=== PATIENT | male | born 1955 | race Caucasian/White ===

== ENCOUNTER 2017-09-05 17:27 | Inpatient (IN) | payer MEDICARE ==
[~2017-09-05] VITALS: Ht 170.2 cm; Wt 87.3 kg
[2017-09-05] VITALS (9 sets, daily range): BP systolic 82–134; BP diastolic 61–83; BMI 29.4
[2017-09-05 19:47] LABS: BASOPHILS 0.2 % (0-2); EOSINOPHILS 0.6 % (0-7); HEMATOCRIT 33.6 % (42.0-54.0); HEMOGLOBIN 11.1 g/dL (13.5-17.5); IMMATURE GRANULOCYTES 0.2 % (0-5); LYMPHOCYTES 16.8 % (15-50); MCH 29.3 pg (26.0-34.0); MCV 88.7 fL (80.0-100.0); MEAN PLATELET VOLUME 9.9 fL (7.4-10.4); MONOCYTES 8.9 % (2-11); NEUTROPHILS 73.3 % (40-80); PLATELET COUNT 245 10x3/uL (130-400); RBC 3.79 10x6/uL (4.20-6.10); RDW 17.8 % (11.5-14.5); WBC 12.5 10x3/uL (4.8-10.8)
[2017-09-05 19:48] LABS: ALBUMIN 1.9 g/dL (3.4-5.0); ANION GAP 12.5 mmol/L (8-16); BILIRUBIN - TOTAL 0.17 mg/dL (0.2-1.3); CALCIUM 8.7 mg/dL (8.5-10.1); CARBON DIOXIDE 25.3 mmol/L (21.0-32.0); CREATININE - SERUM 1.2 mg/dL (0.6-1.3); POTASSIUM - SERUM 3.8 mmol/L (3.5-5.1); PROTEIN - SERUM 6.1 g/dL (6.4-8.2)
[2017-09-05 20:08] LABS: CKMB 1.4 U/L (0.0-3.6); CREATINE KINASE 71 UL (21-232); TROPONIN-I 0.057 ng/mL (0.000-0.060)
[2017-09-05 20:20] LABS: % SATURATION 16 % (15-55); IRON 33 ug/dl (35-150); TOTAL IRON BIND CAPACITY 196 ug/dl (260-445); UNSAT IRON BIND CAPACITY 163 ug/dl (150-375)
[2017-09-06] VITALS (24 sets, daily range): BP systolic 93–150; BP diastolic 66–92; BMI 29.6
[2017-09-06 02:31] LABS: BASOPHILS 0.2 % (0-2); EOSINOPHILS 1.2 % (0-7); IMMATURE GRANULOCYTES 0.2 % (0-5); LYMPHOCYTES 16.8 % (15-50); MCH 30.1 pg (26.0-34.0); MCHC 34.4 g/dL (31.0-37.0); MCV 87.7 fL (80.0-100.0); MEAN PLATELET VOLUME 9.7 fL (7.4-10.4); MONOCYTES 8.8 % (2-11); NEUTROPHILS 72.8 % (40-80); PLATELET COUNT 263 10x3/uL (130-400); RBC 3.65 10x6/uL (4.20-6.10); RDW 17.8 % (11.5-14.5); WBC 13.2 10x3/uL (4.8-10.8)
[2017-09-06 02:53] LABS: CALC OSMOLALITY 283 mosm/kg (275-300); CALCIUM 8.5 mg/dL (8.5-10.1); CARBON DIOXIDE 27.4 mmol/L (21.0-32.0); CHLORIDE - SERUM 106 mmol/L (98-107); CKMB 1.4 U/L (0.0-3.6); CREATINE KINASE 59 UL (21-232); CREATININE - SERUM 1.4 mg/dL (0.6-1.3); GLUCOSE 74 mg/dL (74-106); POTASSIUM - SERUM 3.9 mmol/L (3.5-5.1); SODIUM 141 mmol/L (136-145); TROPONIN-I 0.043 ng/mL (0.000-0.060); UREA NITROGEN 25 mg/dL (7-18); eGFR NON AFRICAN AMERICAN 55 mL/min (90-120)
[2017-09-06 05:28] LABS: CREATININE - URINE 75.8 mg/dL (30-125)
[2017-09-06 05:30] LABS: PROTEIN - URINE 329.9 mg/dL (0.0-11.9)
[2017-09-06 08:07] LABS: CKMB 1.2 U/L (0.0-3.6); CREATINE KINASE 76 UL (21-232); TROPONIN-I 0.048 ng/mL (0.000-0.060)
[2017-09-06] MEDS ORDERED: NORVASC5 MG PO (13:45)
[2017-09-06] MEDS ORDERED: BACLOFEN20 M1 PO (13:46)
[2017-09-06] MEDS ORDERED: COREG12.5 MG PO (13:46)
[2017-09-06] MEDS ORDERED: DEXILANT60 MG PO (13:47)
[2017-09-06] MEDS ORDERED: CATAPRES0.1 MG PO (13:47)
[2017-09-06] MEDS ORDERED: FUROSEMIDE40 MG PO ×2 (13:48→13:49)
[2017-09-06] MEDS ORDERED: FOLIC ACID1 MG PO (13:48)
[2017-09-06] MEDS ORDERED: HUMULIN R100 U/ML SC (13:52)
[2017-09-06] MEDS ORDERED: HYDROCODONE-APA1 TAB PO (13:53)
[2017-09-06] MEDS ORDERED: K-DUR20 MEQ PO (13:54)
[2017-09-06] MEDS ORDERED: JENTADUETO 2.51 EACH PO (13:54)
[2017-09-06] MEDS ORDERED: IPRAT-ALBUT 0.5-3 ML UPD (13:54)
[2017-09-06] MEDS ORDERED: LEVEMIR100 U/M1 SC (13:55)
[2017-09-06] MEDS ORDERED: METOPROLOL TART50 MG PO (13:56)
[2017-09-06] MEDS ORDERED: RELAFEN750 MG PO (13:56)
[2017-09-06] MEDS ORDERED: GLUCOPHAGE500 MG PO (13:56)
[2017-09-06] MEDS ORDERED: NEURONTIN 300300 MG PO (13:57)
[2017-09-06] MEDS ORDERED: PROTONIX40 MG PO (13:58)
[2017-09-06] MEDS ORDERED: PRAVACHOL40 MG PO (13:58)
[2017-09-06] MEDS ORDERED: CARAFATE1 G/10 ML PO (13:59)
[2017-09-07] VITALS (23 sets, daily range): BP systolic 110–173; BP diastolic 74–100
[2017-09-07 04:39] LABS: BASOPHILS 0.3 % (0-2); EOSINOPHILS 2.6 % (0-7); HEMATOCRIT 32.4 % (42.0-54.0); HEMOGLOBIN 10.8 g/dL (13.5-17.5); IMMATURE GRANULOCYTES 0.2 % (0-5); LYMPHOCYTES 15.7 % (15-50); MCH 29.1 pg (26.0-34.0); MCHC 33.3 g/dL (31.0-37.0); MCV 87.3 fL (80.0-100.0); MEAN PLATELET VOLUME 11.1 fL (7.4-10.4); MONOCYTES 7.5 % (2-11); NEUTROPHILS 73.7 % (40-80); RBC 3.71 10x6/uL (4.20-6.10); RDW 18.7 % (11.5-14.5); WBC 12.5 10x3/uL (4.8-10.8)
[2017-09-07 04:40] LABS: PLATELET COUNT 199 10x3/uL (130-400)
[2017-09-07 04:50] LABS: ANION GAP 16.8 mmol/L (8-16); CALCIUM 7.9 mg/dL (8.5-10.1); CARBON DIOXIDE 22.5 mmol/L (21.0-32.0); CREATININE - SERUM 1.2 mg/dL (0.6-1.3); MAGNESIUM - SERUM 1.7 mg/dL (1.8-2.4); PHOSPHOROUS 4.7 mg/dL (2.5-4.9); POTASSIUM - SERUM 4.3 mmol/L (3.5-5.1)
[2017-09-07 08:19] LABS: FOLATE (FOLIC ACID) - SERUM >20.0 ng/mL (>3.0)
[2017-09-07 18:11] LABS: ACID FAST SMEAR Negative (()); AFB SPECIMEN PROCESSING Concentration (())
[2017-09-08] VITALS (24 sets, daily range): BP systolic 136–166; BP diastolic 78–92
[2017-09-08 04:33] LABS: BASOPHILS 0.3 % (0-2); EOSINOPHILS 4.3 % (0-7); HEMATOCRIT 31.4 % (42.0-54.0); HEMOGLOBIN 10.5 g/dL (13.5-17.5); IMMATURE GRANULOCYTES 0.3 % (0-5); LYMPHOCYTES 14.4 % (15-50); MCH 29.2 pg (26.0-34.0); MCHC 33.4 g/dL (31.0-37.0); MCV 87.5 fL (80.0-100.0); MEAN PLATELET VOLUME 9.6 fL (7.4-10.4); MONOCYTES 8.5 % (2-11); NEUTROPHILS 72.2 % (40-80); PLATELET COUNT 236 10x3/uL (130-400); RBC 3.59 10x6/uL (4.20-6.10); RDW 18.3 % (11.5-14.5); WBC 14.4 10x3/uL (4.8-10.8)
[2017-09-08 04:50] LABS: ALBUMIN 1.6 g/dL (3.4-5.0); ANION GAP 14.4 mmol/L (8-16); BILIRUBIN - TOTAL 0.18 mg/dL (0.2-1.3); CARBON DIOXIDE 21.2 mmol/L (21.0-32.0); CREATININE - SERUM 1.1 mg/dL (0.6-1.3); PROTEIN - SERUM 5.8 g/dL (6.4-8.2)
[2017-09-08 05:03] LABS: POTASSIUM - SERUM 3.6 mmol/L (3.5-5.1)
[2017-09-08 12:17] LABS: FUNGUS STAIN Final report (())
[2017-09-09] VITALS (24 sets, daily range): BP systolic 107–174; BP diastolic 60–96; Ht 170.2 cm; Wt 87.3 kg
[2017-09-09 04:09] LABS: BASOPHILS 0.3 % (0-2); EOSINOPHILS 4.6 % (0-7); HEMATOCRIT 29.7 % (42.0-54.0); HEMOGLOBIN 9.9 g/dL (13.5-17.5); IMMATURE GRANULOCYTES 0.4 % (0-5); LYMPHOCYTES 16.2 % (15-50); MCH 29.2 pg (26.0-34.0); MCHC 33.3 g/dL (31.0-37.0); MCV 87.6 fL (80.0-100.0); MEAN PLATELET VOLUME 9.7 fL (7.4-10.4); MONOCYTES 7.7 % (2-11); NEUTROPHILS 70.8 % (40-80); PLATELET COUNT 239 10x3/uL (130-400); RBC 3.39 10x6/uL (4.20-6.10); RDW 18.7 % (11.5-14.5); WBC 13.4 10x3/uL (4.8-10.8)
[2017-09-09 04:20] LABS: CALC OSMOLALITY 284 mosm/kg (275-300); CALCIUM 8.2 mg/dL (8.5-10.1); CHLORIDE - SERUM 109 mmol/L (98-107); GLUCOSE 179 mg/dL (74-106); POTASSIUM - SERUM 3.4 mmol/L (3.5-5.1); SODIUM 141 mmol/L (136-145); UREA NITROGEN 13 mg/dL (7-18); eGFR NON AFRICAN AMERICAN 81 mL/min (90-120)
[2017-09-10] VITALS (24 sets, daily range): BP systolic 115–182; BP diastolic 62–97
[2017-09-10 03:58] LABS: BASOPHILS 0.6 % (0-2); EOSINOPHILS 5.4 % (0-7); HEMATOCRIT 30.4 % (42.0-54.0); IMMATURE GRANULOCYTES 0.6 % (0-5); LYMPHOCYTES 15.3 % (15-50); MCHC 32.9 g/dL (31.0-37.0); MCV 88.1 fL (80.0-100.0); MEAN PLATELET VOLUME 9.7 fL (7.4-10.4); NEUTROPHILS 70.1 % (40-80); PLATELET COUNT 225 10x3/uL (130-400); RBC 3.45 10x6/uL (4.20-6.10); RDW 18.2 % (11.5-14.5); WBC 13.3 10x3/uL (4.8-10.8)
[2017-09-10 04:12] LABS: CALC OSMOLALITY 280 mosm/kg (275-300); CALCIUM 7.9 mg/dL (8.5-10.1); CARBON DIOXIDE 20.8 mmol/L (21.0-32.0); CHLORIDE - SERUM 107 mmol/L (98-107); CREATININE - SERUM 0.9 mg/dL (0.6-1.3); GLUCOSE 186 mg/dL (74-106); POTASSIUM - SERUM 3.6 mmol/L (3.5-5.1); SODIUM 138 mmol/L (136-145); UREA NITROGEN 12 mg/dL (7-18); VANCOMYCIN - RANDOM 17.2 ug/mL (10.0-20.0); eGFR NON AFRICAN AMERICAN > 90 mL/min (90-120)
[2017-09-11] VITALS (24 sets, daily range): BP systolic 149–174; BP diastolic 75–96
[2017-09-11 06:51] LABS: BASOPHILS 0.7 % (0-2); EOSINOPHILS 7.1 % (0-7); HEMATOCRIT 31.9 % (42.0-54.0); HEMOGLOBIN 10.6 g/dL (13.5-17.5); LYMPHOCYTES 16.9 % (15-50); MCH 29.1 pg (26.0-34.0); MCHC 33.2 g/dL (31.0-37.0); MCV 87.6 fL (80.0-100.0); MEAN PLATELET VOLUME 9.5 fL (7.4-10.4); MONOCYTES 10.3 % (2-11); PLATELET COUNT 213 10x3/uL (130-400); RBC 3.64 10x6/uL (4.20-6.10); RDW 18.4 % (11.5-14.5); WBC 12.9 10x3/uL (4.8-10.8)
[2017-09-11 07:16] LABS: ALKALINE PHOSPHATASE 77 U/L (46-116); ALT (SGPT) 10 U/L (10-68); BILIRUBIN - TOTAL 0.21 mg/dL (0.2-1.3); CALC OSMOLALITY 283 mosm/kg (275-300); CALCIUM 8.2 mg/dL (8.5-10.1); CARBON DIOXIDE 19.9 mmol/L (21.0-32.0); CHLORIDE - SERUM 107 mmol/L (98-107); CREATININE - SERUM 0.9 mg/dL (0.6-1.3); GLUCOSE 184 mg/dL (74-106); MAGNESIUM - SERUM 1.8 mg/dL (1.8-2.4); PHOSPHOROUS 3.8 mg/dL (2.5-4.9); POTASSIUM - SERUM 3.2 mmol/L (3.5-5.1); PROTEIN - SERUM 6.2 g/dL (6.4-8.2); SODIUM 140 mmol/L (136-145); UREA NITROGEN 12 mg/dL (7-18); eGFR NON AFRICAN AMERICAN > 90 mL/min (90-120)
[2017-09-12] VITALS (18 sets, daily range): BP systolic 137–182; BP diastolic 80–98
[2017-09-12 04:58] LABS: BASOPHILS 0.5 % (0-2); EOSINOPHILS 5.5 % (0-7); HEMATOCRIT 31.1 % (42.0-54.0); HEMOGLOBIN 10.2 g/dL (13.5-17.5); IMMATURE GRANULOCYTES 1.1 % (0-5); LYMPHOCYTES 15.1 % (15-50); MCH 28.8 pg (26.0-34.0); MCHC 32.8 g/dL (31.0-37.0); MCV 87.9 fL (80.0-100.0); MEAN PLATELET VOLUME 10.2 fL (7.4-10.4); MONOCYTES 9.6 % (2-11); NEUTROPHILS 68.2 % (40-80); PLATELET COUNT 242 10x3/uL (130-400); RBC 3.54 10x6/uL (4.20-6.10); WBC 15.1 10x3/uL (4.8-10.8)
[2017-09-12 05:24] LABS: ALBUMIN 2.1 g/dL (3.4-5.0); ALKALINE PHOSPHATASE 75 U/L (46-116); ALT (SGPT) 11 U/L (10-68); BILIRUBIN - TOTAL 0.27 mg/dL (0.2-1.3); CALC OSMOLALITY 286 mosm/kg (275-300); CALCIUM 8.3 mg/dL (8.5-10.1); CHLORIDE - SERUM 109 mmol/L (98-107); CREATININE - SERUM 0.8 mg/dL (0.6-1.3); GLUCOSE 155 mg/dL (74-106); PROTEIN - SERUM 6.2 g/dL (6.4-8.2); SODIUM 142 mmol/L (136-145); UREA NITROGEN 15 mg/dL (7-18); eGFR NON AFRICAN AMERICAN > 90 mL/min (90-120)
[2017-09-12 05:37] LABS: POTASSIUM - SERUM 3.2 mmol/L (3.5-5.1)
[2017-09-13 03:00] VITALS: BP 178/98
[2017-09-13 04:38] LABS: BASOPHILS 0.6 % (0-2); EOSINOPHILS 4.4 % (0-7); HEMATOCRIT 32.1 % (42.0-54.0); HEMOGLOBIN 10.7 g/dL (13.5-17.5); IMMATURE GRANULOCYTES 0.8 % (0-5); LYMPHOCYTES 15.1 % (15-50); MCH 29.3 pg (26.0-34.0); MCHC 33.3 g/dL (31.0-37.0); MCV 87.9 fL (80.0-100.0); MEAN PLATELET VOLUME 10.3 fL (7.4-10.4); NEUTROPHILS 71.1 % (40-80); PLATELET COUNT 260 10x3/uL (130-400); RBC 3.65 10x6/uL (4.20-6.10); RDW 17.9 % (11.5-14.5); WBC 16.5 10x3/uL (4.8-10.8)
[2017-09-13 04:52] LABS: ALBUMIN 2.3 g/dL (3.4-5.0); ALKALINE PHOSPHATASE 77 U/L (46-116); BILIRUBIN - TOTAL 0.45 mg/dL (0.2-1.3); CALC OSMOLALITY 287 mosm/kg (275-300); CALCIUM 8.8 mg/dL (8.5-10.1); CARBON DIOXIDE 18.5 mmol/L (21.0-32.0); CHLORIDE - SERUM 108 mmol/L (98-107); CREATININE - SERUM 0.9 mg/dL (0.6-1.3); GLUCOSE 164 mg/dL (74-106); PROTEIN - SERUM 6.6 g/dL (6.4-8.2); SODIUM 142 mmol/L (136-145); UREA NITROGEN 15 mg/dL (7-18); eGFR NON AFRICAN AMERICAN > 90 mL/min (90-120)
[2017-09-13 04:55] LABS: ALT (SGPT) 8 U/L (10-68); POTASSIUM - SERUM 3.2 mmol/L (3.5-5.1)
[2017-09-13 07:00] VITALS: BP 152/93
[2017-09-13 07:31] LABS: FUNGUS CULTURE RESULT 1 Candida albicans (())
[2017-09-13 11:00] VITALS: BP 156/94
[2017-09-13 16:33] VITALS: BP 162/79
[2017-09-13 20:00] VITALS: BP 162/83
[2017-09-14] VITALS: BP 150/90
[2017-09-14 04:00] VITALS: BP 162/88
[2017-09-14 06:55] LABS: BASOPHILS 0.8 % (0-2); EOSINOPHILS 3.8 % (0-7); HEMATOCRIT 32.4 % (42.0-54.0); HEMOGLOBIN 10.8 g/dL (13.5-17.5); IMMATURE GRANULOCYTES 0.6 % (0-5); LYMPHOCYTES 14.4 % (15-50); MCH 29.1 pg (26.0-34.0); MCHC 33.3 g/dL (31.0-37.0); MCV 87.3 fL (80.0-100.0); MEAN PLATELET VOLUME 9.6 fL (7.4-10.4); MONOCYTES 7.4 % (2-11); PLATELET COUNT 266 10x3/uL (130-400); RBC 3.71 10x6/uL (4.20-6.10); RDW 17.6 % (11.5-14.5); WBC 17.1 10x3/uL (4.8-10.8)
[2017-09-14 07:10] LABS: ALBUMIN 2.3 g/dL (3.4-5.0); ALKALINE PHOSPHATASE 77 U/L (46-116); BILIRUBIN - TOTAL 0.37 mg/dL (0.2-1.3); CALC OSMOLALITY 291 mosm/kg (275-300); CALCIUM 9.1 mg/dL (8.5-10.1); CARBON DIOXIDE 18.1 mmol/L (21.0-32.0); CHLORIDE - SERUM 111 mmol/L (98-107); GLUCOSE 168 mg/dL (74-106); PROTEIN - SERUM 6.5 g/dL (6.4-8.2); SODIUM 144 mmol/L (136-145); UREA NITROGEN 16 mg/dL (7-18); eGFR NON AFRICAN AMERICAN 81 mL/min (90-120)
[2017-09-14 07:12] LABS: ALT (SGPT) 14 U/L (10-68)
[2017-09-14 07:51] VITALS: BP 144/92
[2017-09-14 12:24] VITALS: BP 182/92
[2017-09-14 15:57] VITALS: BP 189/89
[2017-09-14 17:24] LABS: APPEARANCE HAZY (CLEAR); BILIRUBIN NEGATIVE (NEGATIVE); COLOR YELLOW (YELLOW); GLUCOSE 250 mg/dL (NEGATIVE); KETONE SMALL mg/dL (NEGATIVE); NITRITE NEGATIVE (NEGATIVE); PROTEIN 3+ mg/dL (NEGATIVE); SPECIFIC GRAVITY 1.015 (1.005-1.020); UROBILINOGEN NORMAL (NORMAL)
[2017-09-14 17:25] LABS: BACTERIA MANY /hpf (NONE SEEN); EPITHELIAL CELLS 0-5 /hpf (0-5); RED CELLS - URINE 0-5 /hpf (0-5); WHITE CELLS - URINE 0-5 /hpf (0-5)
[2017-09-14 17:26] LABS: AMORPHOUS SEDIMENT <1+ /lpf (NONE SEEN)
[2017-09-14 19:36] VITALS: BP 160/88
[2017-09-15] VITALS: BP 168/93
[2017-09-15 04:00] VITALS: BP 176/99
[2017-09-15 06:20] LABS: BASOPHILS 0.7 % (0-2); EOSINOPHILS 1.9 % (0-7); HEMATOCRIT 32.5 % (42.0-54.0); HEMOGLOBIN 10.9 g/dL (13.5-17.5); IMMATURE GRANULOCYTES 0.4 % (0-5); LYMPHOCYTES 13.7 % (15-50); MCH 29.4 pg (26.0-34.0); MCHC 33.5 g/dL (31.0-37.0); MCV 87.6 fL (80.0-100.0); MEAN PLATELET VOLUME 10.3 fL (7.4-10.4); MONOCYTES 7.3 % (2-11); PLATELET COUNT 292 10x3/uL (130-400); RBC 3.71 10x6/uL (4.20-6.10); RDW 17.6 % (11.5-14.5); WBC 18.1 10x3/uL (4.8-10.8)
[2017-09-15 06:50] LABS: ALBUMIN 2.2 g/dL (3.4-5.0); ALKALINE PHOSPHATASE 76 U/L (46-116); ALT (SGPT) 13 U/L (10-68); CALC OSMOLALITY 295 mosm/kg (275-300); CALCIUM 8.3 mg/dL (8.5-10.1); CHLORIDE - SERUM 113 mmol/L (98-107); GLUCOSE 157 mg/dL (74-106); SODIUM 146 mmol/L (136-145); UREA NITROGEN 19 mg/dL (7-18); eGFR NON AFRICAN AMERICAN 81 mL/min (90-120)
[2017-09-15 11:26] VITALS: BP 158/83
[2017-09-15 16:17] VITALS: BP 168/85
[2017-09-15 19:57] VITALS: BP 162/86
[2017-09-16] VITALS: BP 156/82
[2017-09-16 04:00] VITALS: BP 174/99
[2017-09-16 06:01] LABS: BASOPHILS 0.8 % (0-2); EOSINOPHILS 2.3 % (0-7); HEMATOCRIT 30.7 % (42.0-54.0); HEMOGLOBIN 10.4 g/dL (13.5-17.5); IMMATURE GRANULOCYTES 0.5 % (0-5); LYMPHOCYTES 13.4 % (15-50); MCH 29.5 pg (26.0-34.0); MCHC 33.9 g/dL (31.0-37.0); MEAN PLATELET VOLUME 9.5 fL (7.4-10.4); MONOCYTES 6.3 % (2-11); NEUTROPHILS 76.7 % (40-80); PLATELET COUNT 281 10x3/uL (130-400); RBC 3.53 10x6/uL (4.20-6.10); RDW 17.5 % (11.5-14.5); WBC 19.5 10x3/uL (4.8-10.8)
[2017-09-16 06:33] LABS: ALBUMIN 2.1 g/dL (3.4-5.0); ANION GAP 15.6 mmol/L (8-16); BILIRUBIN - TOTAL 0.4 mg/dL (0.2-1.3); CALCIUM 8.5 mg/dL (8.5-10.1); CARBON DIOXIDE 19.8 mmol/L (21.0-32.0); CREATININE - SERUM 1.1 mg/dL (0.6-1.3); PROTEIN - SERUM 5.9 g/dL (6.4-8.2); VANCOMYCIN - TROUGH 14.2 ug/mL (10.0-20.0)
[2017-09-16 06:37] LABS: POTASSIUM - SERUM 2.4 mmol/L (3.5-5.1)
[2017-09-16 08:54] VITALS: BP 179/93
[2017-09-16 11:10] LABS: MAGNESIUM - SERUM 1.5 mg/dL (1.8-2.4); PHOSPHOROUS 3.6 mg/dL (2.5-4.9)
[2017-09-16 11:50] VITALS: BP 177/105
[2017-09-16 15:57] VITALS: BP 164/92
[2017-09-16 23:18] VITALS: BP 183/83
[2017-09-17 05:17] VITALS: BP 192/91
[2017-09-17 06:24] LABS: BASOPHILS 0.8 % (0-2); HEMATOCRIT 31.5 % (42.0-54.0); HEMOGLOBIN 10.5 g/dL (13.5-17.5); IMMATURE GRANULOCYTES 0.4 % (0-5); LYMPHOCYTES 14.4 % (15-50); MCH 29.7 pg (26.0-34.0); MCHC 33.3 g/dL (31.0-37.0); MEAN PLATELET VOLUME 9.8 fL (7.4-10.4); MONOCYTES 6.6 % (2-11); NEUTROPHILS 74.8 % (40-80); PLATELET COUNT 290 10x3/uL (130-400); RBC 3.54 10x6/uL (4.20-6.10); RDW 17.9 % (11.5-14.5); WBC 18.7 10x3/uL (4.8-10.8)
[2017-09-17 06:28] LABS: ALBUMIN 2.4 g/dL (3.4-5.0); BILIRUBIN - TOTAL 0.4 mg/dL (0.2-1.3); CALCIUM 8.5 mg/dL (8.5-10.1); CARBON DIOXIDE 17.8 mmol/L (21.0-32.0); CREATININE - SERUM 1.2 mg/dL (0.6-1.3); PROTEIN - SERUM 5.5 g/dL (6.4-8.2)
[2017-09-17 06:32] LABS: ANION GAP 18.1 mmol/L (8-16); POTASSIUM - SERUM 2.9 mmol/L (3.5-5.1)
[2017-09-17 08:14] VITALS: BP 182/97
[2017-09-17 12:13] VITALS: BP 181/102
[2017-09-17 12:13] LABS: MAGNESIUM - SERUM 1.6 mg/dL (1.8-2.4); PHOSPHOROUS 3.3 mg/dL (2.5-4.9)
[2017-09-17 16:03] VITALS: BP 144/74
[2017-09-18 04:47] LABS: BASOPHILS 0.9 % (0-2); EOSINOPHILS 3.9 % (0-7); HEMATOCRIT 30.9 % (42.0-54.0); HEMOGLOBIN 10.6 g/dL (13.5-17.5); IMMATURE GRANULOCYTES 0.4 % (0-5); MCHC 34.3 g/dL (31.0-37.0); MCV 87.5 fL (80.0-100.0); MEAN PLATELET VOLUME 9.9 fL (7.4-10.4); MONOCYTES 6.1 % (2-11); NEUTROPHILS 73.7 % (40-80); PLATELET COUNT 279 10x3/uL (130-400); RBC 3.53 10x6/uL (4.20-6.10); RDW 18.3 % (11.5-14.5); WBC 18.1 10x3/uL (4.8-10.8)
[2017-09-18 05:24] LABS: ALBUMIN 2.6 g/dL (3.4-5.0); ANION GAP 17.8 mmol/L (8-16); BILIRUBIN - TOTAL 0.4 mg/dL (0.2-1.3); CALCIUM 9.1 mg/dL (8.5-10.1); CARBON DIOXIDE 19.2 mmol/L (21.0-32.0); CREATININE - SERUM 1.2 mg/dL (0.6-1.3); PROTEIN - SERUM 5.8 g/dL (6.4-8.2)
[2017-09-18 05:26] VITALS: BP 182/100
[2017-09-18 09:01] VITALS: BP 167/106
[2017-09-18 13:06] VITALS: BP 149/88
[2017-09-18 15:22] VITALS: BP 154/87
[2017-09-18 21:56] VITALS: BP 148/66
[2017-09-19 05:18] VITALS: BP 180/84
[2017-09-19 06:06] LABS: BASOPHILS 0.9 % (0-2); EOSINOPHILS 6.1 % (0-7); HEMOGLOBIN 9.8 g/dL (13.5-17.5); IMMATURE GRANULOCYTES 0.3 % (0-5); LYMPHOCYTES 16.5 % (15-50); MCH 29.9 pg (26.0-34.0); MCHC 33.8 g/dL (31.0-37.0); MCV 88.4 fL (80.0-100.0); MEAN PLATELET VOLUME 10.1 fL (7.4-10.4); NEUTROPHILS 69.2 % (40-80); PLATELET COUNT 290 10x3/uL (130-400); RBC 3.28 10x6/uL (4.20-6.10); RDW 18.3 % (11.5-14.5); WBC 17.4 10x3/uL (4.8-10.8)
[2017-09-19 06:56] LABS: ALBUMIN 2.2 g/dL (3.4-5.0); BILIRUBIN - TOTAL 0.29 mg/dL (0.2-1.3); CALCIUM 8.6 mg/dL (8.5-10.1); CARBON DIOXIDE 22.8 mmol/L (21.0-32.0); CREATININE - SERUM 1.2 mg/dL (0.6-1.3); PROTEIN - SERUM 5.8 g/dL (6.4-8.2)
[2017-09-19 07:00] LABS: ANION GAP 14.7 mmol/L (8-16); POTASSIUM - SERUM 2.5 mmol/L (3.5-5.1)
[2017-09-19 10:38] VITALS: BP 181/113
[2017-09-19 15:00] VITALS: BP 167/95
[2017-09-19 16:43] LABS: APPEARANCE CLEAR (CLEAR); BILIRUBIN NEGATIVE (NEGATIVE); COLOR YELLOW (YELLOW); GLUCOSE 250 mg/dL (NEGATIVE); KETONE NEGATIVE (NEGATIVE); NITRITE NEGATIVE (NEGATIVE); PROTEIN 1+ mg/dL (NEGATIVE); UROBILINOGEN NORMAL (NORMAL)
[2017-09-19 18:17] VITALS: BP 159/91
[2017-09-19 20:00] VITALS: BP 137/69
[2017-09-20 04:00] VITALS: BP 192/99
[2017-09-20 05:27] LABS: BASOPHILS 0.6 % (0-2); EOSINOPHILS 3.4 % (0-7); HEMATOCRIT 30.1 % (42.0-54.0); HEMOGLOBIN 10.1 g/dL (13.5-17.5); IMMATURE GRANULOCYTES 0.3 % (0-5); LYMPHOCYTES 11.7 % (15-50); MCH 30.1 pg (26.0-34.0); MCHC 33.6 g/dL (31.0-37.0); MCV 89.9 fL (80.0-100.0); MEAN PLATELET VOLUME 9.4 fL (7.4-10.4); PLATELET COUNT 263 10x3/uL (130-400); RBC 3.35 10x6/uL (4.20-6.10); RDW 18.3 % (11.5-14.5); WBC 21.8 10x3/uL (4.8-10.8)
[2017-09-20 05:39] LABS: ALBUMIN 1.9 g/dL (3.4-5.0); ANION GAP 12.4 mmol/L (8-16); BILIRUBIN - TOTAL 0.31 mg/dL (0.2-1.3); CALCIUM 8.6 mg/dL (8.5-10.1); CARBON DIOXIDE 24.5 mmol/L (21.0-32.0); CREATININE - SERUM 1.4 mg/dL (0.6-1.3); PROTEIN - SERUM 5.7 g/dL (6.4-8.2)
[2017-09-20 05:47] LABS: POTASSIUM - SERUM 2.9 mmol/L (3.5-5.1)
[2017-09-20 09:03] VITALS: BP 181/90
[2017-09-20 12:35] VITALS: BP 177/88
[2017-09-20 15:56] VITALS: BP 146/83
[2017-09-20 20:00] VITALS: BP 144/77
[2017-09-21 06:07] VITALS: BP 162/86
[2017-09-21 06:16] LABS: BASOPHILS 0.6 % (0-2); EOSINOPHILS 7.4 % (0-7); IMMATURE GRANULOCYTES 0.4 % (0-5); LYMPHOCYTES 17.6 % (15-50); MCH 29.9 pg (26.0-34.0); MCHC 33.3 g/dL (31.0-37.0); MCV 89.8 fL (80.0-100.0); MEAN PLATELET VOLUME 10.4 fL (7.4-10.4); MONOCYTES 5.7 % (2-11); NEUTROPHILS 68.3 % (40-80); PLATELET COUNT 258 10x3/uL (130-400); RBC 3.34 10x6/uL (4.20-6.10); RDW 18.3 % (11.5-14.5)
[2017-09-21 06:46] LABS: ALBUMIN 1.9 g/dL (3.4-5.0); BILIRUBIN - TOTAL 0.3 mg/dL (0.2-1.3); CALCIUM 8.2 mg/dL (8.5-10.1); CARBON DIOXIDE 23.9 mmol/L (21.0-32.0); CREATININE - SERUM 1.2 mg/dL (0.6-1.3); PROTEIN - SERUM 5.9 g/dL (6.4-8.2)
[2017-09-21 06:55] LABS: ANION GAP 13.1 mmol/L (8-16)
[2017-09-21 09:07] VITALS: BP 174/93
[2017-09-21 13:13] VITALS: BP 156/83
[2017-09-21 16:23] VITALS: BP 171/98
[2017-09-21 20:00] VITALS: BP 135/77
[2017-09-22 04:00] VITALS: BP 195/89
[2017-09-22 06:24] LABS: EOSINOPHILS 9.1 % (0-7); HEMATOCRIT 29.8 % (42.0-54.0); HEMOGLOBIN 9.9 g/dL (13.5-17.5); IMMATURE GRANULOCYTES 0.2 % (0-5); MCH 30.1 pg (26.0-34.0); MCHC 33.2 g/dL (31.0-37.0); MCV 90.6 fL (80.0-100.0); MEAN PLATELET VOLUME 10.3 fL (7.4-10.4); MONOCYTES 7.8 % (2-11); NEUTROPHILS 63.9 % (40-80); PLATELET COUNT 256 10x3/uL (130-400); RBC 3.29 10x6/uL (4.20-6.10); WBC 12.9 10x3/uL (4.8-10.8)
[2017-09-22 06:47] LABS: ALBUMIN 1.9 g/dL (3.4-5.0); ANION GAP 14.5 mmol/L (8-16); BILIRUBIN - TOTAL 0.3 mg/dL (0.2-1.3); CALCIUM 8.2 mg/dL (8.5-10.1); CARBON DIOXIDE 22.5 mmol/L (21.0-32.0); CREATININE - SERUM 1.2 mg/dL (0.6-1.3); PROTEIN - SERUM 5.3 g/dL (6.4-8.2)
[2017-09-22 07:52] VITALS: BP 177/91
[2017-09-22 12:02] VITALS: BP 177/98
[2017-09-22 17:14] VITALS: BP 142/77
[2017-09-22 21:32] VITALS: BP 171/97
[2017-09-23 04:56] VITALS: BP 168/87
[2017-09-23 06:29] LABS: ALBUMIN 1.8 g/dL (3.4-5.0); ALKALINE PHOSPHATASE 109 U/L (46-116); ALT (SGPT) 11 U/L (10-68); BILIRUBIN - TOTAL 0.15 mg/dL (0.2-1.3); CALC OSMOLALITY 287 mosm/kg (275-300); CALCIUM 8.3 mg/dL (8.5-10.1); CARBON DIOXIDE 22.1 mmol/L (21.0-32.0); CHLORIDE - SERUM 110 mmol/L (98-107); GLUCOSE 153 mg/dL (74-106); PROTEIN - SERUM 5.2 g/dL (6.4-8.2); SODIUM 143 mmol/L (136-145); UREA NITROGEN 12 mg/dL (7-18); eGFR NON AFRICAN AMERICAN 81 mL/min (90-120)
[2017-09-23 06:32] LABS: POTASSIUM - SERUM 3.7 mmol/L (3.5-5.1)
[2017-09-23 06:51] LABS: BASOPHILS 1.7 % (0-2); HEMATOCRIT 28.7 % (42.0-54.0); HEMOGLOBIN 9.8 g/dL (13.5-17.5); IMMATURE GRANULOCYTES 1.7 % (0-5); LYMPHOCYTES 19.3 % (15-50); MCH 30.3 pg (26.0-34.0); MCHC 34.1 g/dL (31.0-37.0); MCV 88.9 fL (80.0-100.0); MEAN PLATELET VOLUME 11.8 fL (7.4-10.4); MONOCYTES 9.2 % (2-11); NEUTROPHILS 60.1 % (40-80); PLATELET COUNT 253 10x3/uL (130-400); RBC 3.23 10x6/uL (4.20-6.10); RDW 17.7 % (11.5-14.5); WBC 11.3 10x3/uL (4.8-10.8)
[2017-09-23 08:59] VITALS: BP 152/86
[2017-09-23 13:09] VITALS: BP 134/73
[2017-09-23 16:14] VITALS: BP 138/76
[2017-09-23 22:35] VITALS: BP 154/81
[2017-09-24 04:43] LABS: BASOPHILS 0.9 % (0-2); EOSINOPHILS 7.3 % (0-7); HEMATOCRIT 29.4 % (42.0-54.0); HEMOGLOBIN 9.7 g/dL (13.5-17.5); IMMATURE GRANULOCYTES 0.3 % (0-5); LYMPHOCYTES 22.5 % (15-50); MCH 30.1 pg (26.0-34.0); MEAN PLATELET VOLUME 10.5 fL (7.4-10.4); MONOCYTES 9.5 % (2-11); NEUTROPHILS 59.5 % (40-80); PLATELET COUNT 281 10x3/uL (130-400); RBC 3.22 10x6/uL (4.20-6.10); RDW 17.3 % (11.5-14.5); WBC 11.7 10x3/uL (4.8-10.8)
[2017-09-24 04:49] LABS: MCV 91.3 fL (80.0-100.0)
[2017-09-24 05:26] LABS: ALBUMIN 1.8 g/dL (3.4-5.0); ANION GAP 12.4 mmol/L (8-16); BILIRUBIN - TOTAL 0.2 mg/dL (0.2-1.3); CALCIUM 8.9 mg/dL (8.5-10.1); CARBON DIOXIDE 24.8 mmol/L (21.0-32.0); CREATININE - SERUM 1.2 mg/dL (0.6-1.3); POTASSIUM - SERUM 3.2 mmol/L (3.5-5.1)
[2017-09-24 08:25] VITALS: BP 138/68
[2017-09-24 12:11] VITALS: BP 156/84
[2017-09-24 16:42] VITALS: BP 153/84
[2017-09-24 20:00] VITALS: BP 152/88
[2017-09-25] VITALS: BP 169/96
[2017-09-25 04:00] VITALS: BP 154/77
[2017-09-25 04:47] LABS: BASOPHILS 0.7 % (0-2); EOSINOPHILS 7.5 % (0-7); HEMATOCRIT 30.6 % (42.0-54.0); HEMOGLOBIN 10.2 g/dL (13.5-17.5); IMMATURE GRANULOCYTES 0.3 % (0-5); LYMPHOCYTES 23.2 % (15-50); MCH 30.3 pg (26.0-34.0); MCHC 33.3 g/dL (31.0-37.0); MCV 90.8 fL (80.0-100.0); MEAN PLATELET VOLUME 10.9 fL (7.4-10.4); MONOCYTES 9.4 % (2-11); NEUTROPHILS 58.9 % (40-80); PLATELET COUNT 307 10x3/uL (130-400); RBC 3.37 10x6/uL (4.20-6.10); RDW 17.4 % (11.5-14.5); WBC 11.7 10x3/uL (4.8-10.8)
[2017-09-25 05:24] LABS: ALBUMIN 1.8 g/dL (3.4-5.0); ANION GAP 12.5 mmol/L (8-16); BILIRUBIN - TOTAL 0.19 mg/dL (0.2-1.3); CALCIUM 8.4 mg/dL (8.5-10.1); CARBON DIOXIDE 26.2 mmol/L (21.0-32.0); CREATININE - SERUM 1.2 mg/dL (0.6-1.3); POTASSIUM - SERUM 3.7 mmol/L (3.5-5.1); PROTEIN - SERUM 6.2 g/dL (6.4-8.2)
[2017-09-25 08:12] VITALS: BP 155/92
[2017-10-09 15:09] LABS: FUNGUS MYCOLOGY CULTURE Final report (())
== END 2017-09-25 11:01 | DRG 207 ==
LOC: D.ICU 17:27 → D.MS 18:18 → D.ICU 18:18 → D.MS 09-13 13:12
PROVIDERS: Family Medicine; Internal Medicine Nephrology; Internal Medicine Pulmonary Disease
PROC: 5A1955Z Respiratory Ventilation, Greater than 96 Consecutive Hours (ICD-10-PCS; principal; 2017-09-05)
PROC: 0BH17EZ Insertion of Endotracheal Airway into Trachea, Via Natural or Artificial Opening (ICD-10-PCS; 2017-09-05)
PROC: 0BC68ZZ Extirpation of Matter from Right Lower Lobe Bronchus, Via Natural or Artificial Opening Endoscopic (ICD-10-PCS; 2017-09-06)
DX: J96.21 Acute and chronic respiratory failure with hypoxia (principal); I50.21 Acute systolic (congestive) heart failure; J69.0 Pneumonitis due to inhalation of food and vomit; J44.1 Chronic obstructive pulmonary disease with (acute) exacerbation; J81.1 Chronic pulmonary edema; N17.9 Acute kidney failure, unspecified; N04.9 Nephrotic syndrome with unspecified morphologic changes; J90 Pleural effusion, not elsewhere classified; T17.590A Other foreign object in bronchus causing asphyxiation, initial encounter; E11.9 Type 2 diabetes mellitus without complications; E78.5 Hyperlipidemia, unspecified; I25.10 Atherosclerotic heart disease of native coronary artery without angina pectoris; Z95.1 Presence of aortocoronary bypass graft; I95.9 Hypotension, unspecified; I11.0 Hypertensive heart disease with heart failure; F17.200 Nicotine dependence, unspecified, uncomplicated; D50.9 Iron deficiency anemia, unspecified; R63.4 Abnormal weight loss; R53.1 Weakness; D72.829 Elevated white blood cell count, unspecified; Z86.73 Personal history of transient ischemic attack (TIA), and cerebral infarction without residual deficits; G89.29 Other chronic pain; F12.90 Cannabis use, unspecified, uncomplicated; E88.09 Other disorders of plasma-protein metabolism, not elsewhere classified; R80.9 Proteinuria, unspecified; R13.10 Dysphagia, unspecified